=== PATIENT | male | born 1935 | race Caucasian/White ===

== ENCOUNTER 2021-08-28 05:00 | Outpatient (REF) | payer MEDICARE, SELFPAY | END 2021-08-28 05:01 | disposition home or self-care (01) | LOC: HO.MMNH2L 05:00 | PROVIDERS: Visit Provider Family Medicine | DX: Z13.89 Encounter for screening for other disorder (principal) ==

== ENCOUNTER 2021-09-03 05:00 | Outpatient (REF) | payer MEDICARE, SELFPAY | END 2021-09-03 05:01 | disposition home or self-care (01) | LOC: HO.MMNH2L 05:00 | PROVIDERS: Visit Provider Family Medicine | DX: Z13.89 Encounter for screening for other disorder (principal) ==

== ENCOUNTER 2022-01-21 06:48 | Outpatient (REF) | payer MEDICARE, SELFPAY ==
[2022-01-21 07:39] LABS: Hematocrit 35.9 % (42.0-52.0); Hemoglobin 11.7 g/dl (14.0-18.0); Mean Corpuscular HGB Conc 32.6 g/dl (31.0-36.0); Mean Corpuscular Hemoglobin 29.3 pg (27.0-33.0); Mean Platelet Volume 11.9 fL (9.4-12.4); Platelet Count 150 X10*3/uL (160-400); Red Blood Count 3.99 X10*6/uL (4.60-5.80); Red Cell Distribution Width 14.1 % (11.0-16.0); White Blood Count 4.2 X10*3/uL (4.8-10.8)
[2022-01-21 07:41] LABS: Anion Gap 14 (12-20); Blood Urea Nitrogen 14 mg/dL (9-16); Carbon Dioxide 25 mmol/L (22-29); Chloride 106 mmol/L (96-108); Estimated Glomerular Filt Rate > 60; Glucose Random 215 mg/dL (60-115); Potassium 4.1 mmol/L (3.3-5.1); Sodium 141 mmol/L (135-145)
== END 2022-01-21 06:49 | disposition home or self-care (01) ==
LOC: HO.MMNH2L 06:48
PROVIDERS: Visit Provider Family Medicine
DX: G92.8 Other toxic encephalopathy (principal)
CPT/HCPCS: 36415; 80048; 85027

== ENCOUNTER 2022-02-25 07:04 | Outpatient (REF) | payer MEDICARE, SELFPAY ==
[2022-02-25 07:36] LABS: Hematocrit 35.8 % (42.0-52.0); Hemoglobin 11.6 g/dl (14.0-18.0); Mean Corpuscular HGB Conc 32.4 g/dl (31.0-36.0); Mean Corpuscular Hemoglobin 29.2 pg (27.0-33.0); Mean Corpuscular Volume 90.2 fL (80.0-98.0); Mean Platelet Volume 11.1 fL (9.4-12.4); Platelet Count 178 X10*3/uL (160-400); Red Blood Count 3.97 X10*6/uL (4.60-5.80); Red Cell Distribution Width 13.6 % (11.0-16.0); White Blood Count 5.1 X10*3/uL (4.8-10.8)
[2022-02-25 08:29] LABS: Blood Urea Nitrogen 16 mg/dL (9-16); Calcium 8.7 mg/dL (8.4-10.2); Estimated Glomerular Filt Rate > 60
[2022-02-25 08:41] LABS: Anion Gap 12 (12-20); Carbon Dioxide 24 mmol/L (22-29); Chloride 107 mmol/L (96-108); Potassium 4.3 mmol/L (3.3-5.1); Sodium 139 mmol/L (135-145)
[2022-02-25 09:31] LABS: Glucose Random 360 mg/dL (60-115)
== END 2022-02-25 07:05 | disposition home or self-care (01) ==
LOC: HO.MMNH2L 07:04
PROVIDERS: Visit Provider Family Medicine
DX: G92.8 Other toxic encephalopathy (principal)
CPT/HCPCS: 36415; 80048; 85027

== ENCOUNTER 2022-02-27 14:07 | Emergency (ER) | payer MEDICARE, MEDICAID, SELFPAY ==
--- NOTE | ~2022-02-27 | XR_ITS ---
EXAMINATION: XR CHEST CLINICAL INFORMATION: Dizziness. COMPARISON: None TECHNIQUE: 2 views of the chest were obtained. FINDINGS: No significant abnormality is noted involving the heart, lungs, mediastinum, bony thorax or soft tissues. XR/XR chest 2V IMPRESSION: No acute cardiopulmonary process.
--- NOTE | ~2022-02-27 | CT_ITS ---
EXAMINATION: CT HEAD WITHOUT CONTRAST CLINICAL INFORMATION: Dizziness COMPARISON: None TECHNIQUE: Imaging was performed from the skull base to vertex without intravenous administration of contrast. This CT examination was performed using dose optimization techniques as appropriate, variously including the following: *Automated exposure control *Adjustment of mA and/or kV according to patient size (this includes techniques or standardized protocols for targeted exams where dose is matched to indication/reason for exam; i.e. extremities or head) *Use of iterative reconstruction technique Total exam dose length product: 938 mGy-cm FINDINGS: No intra or extra-axial fluid collection, hemorrhage, or mass. No ventriculomegaly. No midline shift or herniation. Basal cisterns are patent. Wagner-white matter differentiation is maintained. No territorial encephalomalacia. Proportional prominence of the ventricles and sulcal spaces is consistent with mild volume loss. Patchy periventricular and deep white matter hypoattenuation is consistent with mild small vessel ischemic changes. A few small low-density foci consistent with prior lacunar infarcts in the basal ganglia bilaterally. No calvarial fracture or soft tissue abnormality. The mastoid air cells and visualized portions of the paranasal sinuses are well aerated. CT/CT head/brain wo IV con IMPRESSION: No acute intracranial pathology.
[2022-02-27 14:22] VITALS: BP 154/74; BP 177/80; PULSE 107; PULSE 81; RESP 20; TEMP 36.6; O2SAT 95; O2SAT 99; BMI 27.2
--- NOTE | 2022-02-27 15:04 | ED_ITS ---
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 He had CVA, prostate issues, HTN, DM, melanoma, and asthma. [facility]iness and lightheaded. Uses a walker at baseline. Room was spinner. Blood sugar was checked and was elevated. HE denies chest pain fever chills no nausea vomiting no dysuria frequency. No numbness tingling or weakness. Related Data Allergies Allergy/AdvReac Type Severity Reaction Status Date / Time lisinopril Allergy Unknown Verified 02/27/22 15:27 pembrolizumab Allergy Unknown Verified 02/27/22 15:27 Penicillins Allergy Unknown Verified 02/27/22 15:27 pollen extracts Allergy Unknown Verified 02/27/22 15:27 Sulfa (Sulfonamide Allergy Unknown Verified 02/27/22 15:27 Antibiotics) Review of Systems Review of Systems: Review of systems: General: Patient denies any fever chills recent illness or falls Musculoskeletal: Denies back pain or body aches or other injuries HEENT: denies headache, runny nose, ear pain Respiratory: denies shortness of breath, cough Cardiovascular: no chest pain or palpitations : denies dysuria, frequency Abdomen: no nausea vomiting denies abdominal pain Extremities: no swelling, no pain Skin: no diaphoresis Yes all other systems are reviewed and are negative [facility] Social History Social History Advance Directives: Yes Advance Directives Information Provided: No Advance Directives on File: No Physical Exam ED Vital Signs: Vital Signs - 24 hr 02/27/22 14:22 02/27/22 15:35 Temperature 97.9 F 97.6 F Pulse Rate 81 89 Respiratory Rate 20 20 Blood Pressure 177/80 H 160/84 H Pulse Oximetry 95 99 Oxygen Delivery Method Room Air Room Air BMI result Body Mass Index 27.2 Neurological exam: CN II- XII tested. Patient is alert and oriented to person place and time. Patient has no dysphagia or dysarthia, denies good vision in all four vision truong no nystagmus on exam, good strength to upper and lower extremities with normal reflexes to brachioradialis, wrist, patella and achilles. Negative romberg, good finger to nose and heel to gardner. General: Well-appearing well-nourished in no signs of distress HEENT: Normocephalic atraumatic Neck: No signs of JVD, no masses no tenderness or lymphadenopathy Cardiovascular: Regular rate and rhythm Respiratory: Clear to auscultation bilaterally Abdomen: Soft nontender no masses Extremities: Normal pedal pulses no signs of edema Skin: Dry warm no rashes Back: No tenderness full ROM Medications Administered Generic Name Dose Route Start Last Admin Trade Name Freq PRN Reason Stop Dose Admin Sodium Chloride 1,000 mls @ 999 mls/hr 02/27/22 15:30 02/27/22 15:47 Ns IV 02/27/22 16:30 999 mls/hr .Q1H1M CHALINO Administration Medical Decision Making [facility] Narrative Medical decision making narrative: Patient here with dizziness both lightheaded and room spinning with elevated glucose. I will work up for DKA and check a urine and Xr. I will check labs acetone and give fluids. I willl also get a CT head. I will sign out pending CT and labs. Lab Data Result diagrams: 02/27/22 15:46 02/27/22 15:46 Discharge Plan Discharge Clinical Impression: Dizziness, Light-headedness, Vertiginous syndrome Patient Disposition: Still a Patient
--- NOTE | 2022-02-27 15:31 | ECG_ITS ---
Test Reason : DIZZINESS Blood Pressure : / mmHG Vent. Rate : 080 BPM Atrial Rate : 080 BPM P-R Int : 226 ms QRS Dur : 092 ms QT Int : 436 ms P-R-T Axes : 049 -39 028 degrees QTc Int : 502 ms Sinus rhythm with 1st degree A-V block with Premature atrial complexes Left axis deviation Prolonged QT Abnormal ECG No previous ECGs available Referred By: Eliu Carvajal Electronically Signed By:Adria Gordillo
[2022-02-27 15:35] VITALS: BP 160/84; PULSE 89; RESP 20; TEMP 36.4; O2SAT 99
[2022-02-27] MEDS: 0.9 % Sodium Chloride 1,000 ML 999 ML IV (15:47)
[2022-02-27 15:50] LABS: MANUAL DIFF FLAG NO
[2022-02-27 15:56] LABS: Basophils Percent Auto 0.5 % (0-2); Eosinophils Percent Auto 0.3 % (0-4); Hematocrit 39.6 % (42.0-52.0); Hemoglobin 13.4 g/dl (14.0-18.0); Imm Gran Abs Auto 0.01 X10*3/uL (0.00-0.03); Imm Gran Pct Auto 0.2 % (0.0-0.4); Lymphocytes Absolute Auto 0.7 X10*3/uL (1.2-4.9); Lymphocytes Percent Auto 11.7 % (20-40); Mean Corpuscular HGB Conc 33.8 g/dl (31.0-36.0); Mean Corpuscular Hemoglobin 28.8 pg (27.0-33.0); Mean Corpuscular Volume 85.2 fL (80.0-98.0); Mean Platelet Volume 10.5 fL (9.4-12.4); Monocytes Absolute Auto 0.6 X10*3/uL (0.1-1.2); Monocytes Percent Auto 9.6 % (2-11); Neutrophils Absolute Auto 4.5 x10*3/uL (2.0-8.3); Neutrophils Percent Auto 77.7 % (45-73); Platelet Count 221 X10*3/uL (160-400); Red Blood Count 4.65 X10*6/uL (4.60-5.80); Red Cell Distribution Width 13.5 % (11.0-16.0); White Blood Count 5.8 X10*3/uL (4.8-10.8)
[2022-02-27 16:10] LABS: COVID-19 Test Negative (Negative); IDNOW Serial# 16C4AD1C
[2022-02-27 16:13] LABS: Alanine Aminotransferase 22 U/L (0-40); Albumin Level 4.4 g/dL (3.5-5.0); Alkaline Phosphatase 140 U/L (39-117); Anion Gap 15 (12-20); Aspartate Amino Transferase 21 U/L (5-37); Bilirubin Direct 0.3 mg/dL (0.0-0.5); Bilirubin Total 0.8 mg/dL (0.0-1.0); Blood Urea Nitrogen 17 mg/dL (9-16); Calcium 10.2 mg/dL (8.4-10.2); Carbon Dioxide 24 mmol/L (22-29); Chloride 101 mmol/L (96-108); Creatinine Clr Calc Pharmacy 52.9; Estimated Glomerular Filt Rate > 60; Glucose Random 134 mg/dL (60-115); Lipase 14 U/L (8-78); Potassium 3.2 mmol/L (3.3-5.1); Sodium 137 mmol/L (135-145); Total Protein 7.3 g/dL (6.5-8.0)
--- NOTE | 2022-02-27 16:20 | PHA.MEDREC ---
Pharmacy Consult ? Medication Reconciliation Pharmacy has completed the medication reconciliation.
[2022-02-27 16:49] LABS: Acetone, serum QL Negative (Negative)
[2022-02-27 16:56] LABS: Appearance Urine Clear; Color Urine Yellow; Glucose Urine UA 100 mg/dL (Negative); Leukocyte Esterase Urine Moderate (2+) (Negative); Nitrite Urine Positive (Negative); PH >= 9.0 (5.0-9.0); Specific Gravity - Urine 1.015 (1.005-1.025); UMIC TRIGGER UACC YES; Urine Blood Negative (Negative); Urine Ketones Negative (Negative); Urine Protein 30 (1+) mg/dL (Neg-Trace)
[2022-02-27 17:06] VITALS: BP 149/82; PULSE 91; RESP 18; TEMP 36.7; O2SAT 98
[2022-02-27 17:26] LABS: Bacteria Urine 4+ (None Seen); Hyaline Casts Urine 0-2 /LPF (0-2); RBC Urine 0-2 /HPF (0-2); Squamous Epithelial Cell Urine 0-2 /HPF (0-2); UACC Culture Trigger YES
[2022-02-27] MEDS: Potassium Chloride Packet 20 MEQ PACKET 40 MEQ PO (17:52)
[2022-02-27] MEDS: cefTRIAXone sodium 1 GM in 0.9 % Sodium Chloride 50 ML IV (17:52)
--- NOTE | 2022-02-27 19:12 | PC.NURSE ---
Ambulance booked for pt. On their way to transport back to [facility]
--- NOTE | 2022-02-27 19:17 | PC.NURSE ---
Called nurse to nurse report to RIYA Em at [facility]
--- NOTE | 2022-02-27 20:40 | MHC.CM.ED ---
CM was asked to meet with this patient by Eli BRUNNER, as patient does not want to return to [facility]. When CM entered patient's room, he was on the telephone with his nurse from [facility]. Pt is willing to return to [facility]. Will speak with Director about his concerns. He did not share them with CM. Pt has been living at [facility] for about 6 months. CM did explain to patient that if he is unhappy with living at [facility], he should speak with the social media director at the facility to transfer to another facility. CM services not necessary at this time.
== END 2022-02-27 19:52 | disposition skilled nursing facility (03) ==
PROVIDERS: Emergency Provider Student in an Organized Health Care Education/Training Program; PCP Family Medicine
DX: R42 Dizziness and giddiness (principal); H81.90 Unspecified disorder of vestibular function, unspecified ear; N39.0 Urinary tract infection, site not specified; B96.20 Unspecified Escherichia coli [E. coli] as the cause of diseases classified elsewhere; Z20.822 Contact with and (suspected) exposure to COVID-19; E11.9 Type 2 diabetes mellitus without complications; I10 Essential (primary) hypertension; Z86.73 Personal history of transient ischemic attack (TIA), and cerebral infarction without residual deficits
CPT/HCPCS: 36415; 70450; 71046; 80048; 80076; 81001; 81003; 82009; 83690; 85025; 87086; 87088; 87186; 87635; 93005; 96361; 96374; 99284; J0696

== ENCOUNTER 2022-03-01 08:19 | Emergency (ER) | payer MEDICARE, MEDICAID, SELFPAY ==
--- NOTE | ~2022-03-01 | XR_ITS ---
EXAMINATION: XR CHEST CLINICAL INFORMATION: Cough. COMPARISON: 02/27/2022 chest radiographs. TECHNIQUE: Frontal view of the chest was obtained. FINDINGS: No significant abnormality is noted involving the heart, lungs, mediastinum, bony thorax or soft tissues. Surgical clips are again seen overlying the right axilla. XR/XR chest 1V IMPRESSION: No acute cardiopulmonary process.
--- NOTE | 2022-03-01 08:26 | ECG_ITS ---
Test Reason : abnormal labs/ high blood sugar Blood Pressure : / mmHG Vent. Rate : 081 BPM Atrial Rate : 081 BPM P-R Int : 224 ms QRS Dur : 094 ms QT Int : 378 ms P-R-T Axes : 017 -35 034 degrees QTc Int : 439 ms Sinus rhythm with marked sinus arrhythmia with 1st degree A-V block Left axis deviation Abnormal ECG When compared with ECG of 27-FEB-2022 16:59, Premature atrial complexes are no longer Present QT has shortened Referred By: Chaparrita Tierney Electronically Signed By:Adria Gordillo
[2022-03-01 08:29] VITALS: BP 171/96; PULSE 87; RESP 16; TEMP 36.4; O2SAT 97
[2022-03-01 09:30] LABS: MANUAL DIFF FLAG NO
[2022-03-01 09:34] LABS: Basophils Percent Auto 0.3 % (0-2); Eosinophils Absolute Auto 0.1 X10*3/uL (0.0-0.4); Hematocrit 40.8 % (42.0-52.0); Hemoglobin 13.6 g/dl (14.0-18.0); Imm Gran Abs Auto 0.01 X10*3/uL (0.00-0.03); Imm Gran Pct Auto 0.2 % (0.0-0.4); Lymphocytes Absolute Auto 0.8 X10*3/uL (1.2-4.9); Lymphocytes Percent Auto 13.8 % (20-40); Mean Corpuscular HGB Conc 33.3 g/dl (31.0-36.0); Mean Corpuscular Hemoglobin 29.2 pg (27.0-33.0); Mean Corpuscular Volume 87.7 fL (80.0-98.0); Monocytes Absolute Auto 0.5 X10*3/uL (0.1-1.2); Monocytes Percent Auto 7.9 % (2-11); Neutrophils Absolute Auto 4.6 x10*3/uL (2.0-8.3); Neutrophils Percent Auto 75.8 % (45-73); Platelet Count 208 X10*3/uL (160-400); Red Blood Count 4.65 X10*6/uL (4.60-5.80); Red Cell Distribution Width 13.9 % (11.0-16.0); White Blood Count 6.1 X10*3/uL (4.8-10.8)
[2022-03-01 09:38] VITALS: BP 179/99; O2SAT 97; BMI 26.6
[2022-03-01 09:43] LABS: Acetone, serum QL Negative (Negative)
--- NOTE | 2022-03-01 09:50 | ED_ITS ---
HPI - General Adult General Chief complaint: General Medical Stated complaint: hyperglycemia Time Seen by Provider: 03/01/22 08:26 Source: patient Mode of arrival: EMS History of Present Illness HPI narrative: 86-year-old male who arrives via EMS and is noted to have underlying hypertension, diabetes with complaint of palpitations and high sugar levels. Patient otherwise denies any fever, chills, shortness of breath, chest pain and denies any GI or symptoms. Patient states he has plans with his frame runner to reinsert the insulin pump. And states that he was not discharged with any potassium supplements when he was evaluated here in the emergency room on Friday. Patient states he took his blood pressure medication prior to leaving the facility. He is requesting a Cardiology referral. Related Data Home Medications Medication Instructions Recorded Confirmed albuterol sulfate 90 mcg/actuation 2 puff inhalation Q6H PRN 02/27/22 02/27/22 aerosol inhaler (Ventolin HFA) Shortness Of Breath Or Wheezing aspirin 81 mg tablet,delayed 81 mg PO DAILY 02/27/22 02/27/22 release atorvastatin 40 mg tablet 40 mg PO BEDTIME 02/27/22 02/27/22 chlorpheniramine maleate 4 mg 4 mg PO BID 02/27/22 02/27/22 tablet diltiazem HCl 240 mg 1 cap PO DAILY 02/27/22 02/27/22 capsule,extended release 24 hr diphenhydramine HCl 25 mg tablet 25 mg PO BEDTIME PRN Allergy 02/27/22 02/27/22 (Benadryl Allergy) Symptoms docusate sodium 100 mg capsule 100 mg PO BID 02/27/22 02/27/22 (Colace) fluticasone 250 mcg-salmeterol 50 1 inh inhalation BID 02/27/22 02/27/22 mcg/dose blistr powdr for inhalation (Advair Diskus) fluticasone propionate 50 1 spray intranasal DAILY 02/27/22 02/27/22 mcg/actuation nasal spray,suspension insulin aspart U-100 100 unit/mL 1 sliding scale dose subcut QIDACHS 02/27/22 02/27/22 subcutaneous solution (Novolog U-100 Insulin aspart) insulin glargine 100 unit/mL (3 15 unit subcut BID 02/27/22 02/27/22 mL) subcutaneous pen (Basaglar KwikPen U-100 Insulin) lidocaine 4 % topical patch 1 patch topical DAILY PRN Pain 02/27/22 02/27/22 (Scale Score 1-3) mometasone 50 mcg/actuation nasal 1 spray intranasal DAILY 02/27/22 02/27/22 spray omeprazole 20 mg capsule,delayed 20 mg PO DAILY 02/27/22 02/27/22 release Previous Rx's Medication Instructions Recorded cefuroxime axetil 500 mg tablet 500 mg PO Q12H 7 days #14 tabs 02/27/22 Allergies Allergy/AdvReac Type Severity Reaction Status Date / Time lisinopril Allergy Unknown Verified 02/27/22 15:27 pembrolizumab Allergy Unknown Verified 02/27/22 15:27 Penicillins Allergy Unknown Verified 02/27/22 15:27 pollen extracts Allergy Unknown Verified 02/27/22 15:27 Sulfa (Sulfonamide Allergy Unknown Verified 02/27/22 15:27 Antibiotics) Review of Systems Review of Systems: Pertinent positives and negatives as stated in HPI 10 point review of systems otherwise negative. [facility] Past Medical History Source: nursing notes reviewed Social History Social History Advance Directives: Yes Advance Directives Information Provided: Yes Advance Directives on File: No Physical Exam ED Vital Signs: Vital Signs - 24 hr 03/01/22 08:29 Temperature 97.6 F Pulse Rate 87 Respiratory Rate 16 Blood Pressure 171/96 H Pulse Oximetry 97 Oxygen Delivery Method Room Air BMI result Body Mass Index 26.6 VITAL SIGNS: Reviewed. GENERAL: Well developed, well nourished, in no acute distress. HEAD: Normocephalic/atraumatic EYES: PERRLA, EOMI EARS: Ext canals without abnormality OROPHARYNX: no oral lesions noted, posterior pharynx clear LUNGS: Normal breath sounds. No adventitious sounds or accessory muscle use. SpO2<97> CARDIOVASCULAR: Regular rate and rhythm without noted murmurs, no JVD or lower extremity edema. ABDOMEN: Soft, non-tender, non-distended with bowel sounds. MUSCULOSKELETAL: No tenderness, deformities, or effusions noted on gross inspection. EXTREMITIES: No cyanosis, clubbing or edema. SKIN: Inspection of the skin reveals no rashes NEUROLOGIC: Alert and oriented x 3. Strength and sensation to light touch were grossly intact x 4. Course Course Course Narrative: 86-year-old male with history and clinical presentation after review of all investigations there is no demonstration of infection, anemia, electrolyte abnormalities. On review of all EKGs it is unchanged patient appears to have stable chronic first-degree AV block. Most of his physicians are within the [facility] system, he also has consultants and [place] as well as [place]. I spoke extensively with his healthcare provider at the facility who stated that the patient is reluctant to communicate with her as well as the staff regarding his other medical conditions that he makes arrangements for. He is otherwise hemodynamically stable and will be discharged back to the facility via shuttle. Reevaluation(s) Reevaluation #1: KANNAN Guerra, has made attempts for psych eval which patient refuses, will not s hare medical treatment, facility is struggling with obtaining consult visits and medical plans due to the independent status of the patient. I recommended that they communicate with the gearcase assembler, social research assistant and determine qualifications for penitentiary given the level of independence that is being exhibited by the patient for making medical arrangements and appointments. These plans and consultations leave avoid for the continued care and continuity of care for this patient. KANNAN Guerra agrees and will pursue that avenue and in the meantime we will continue to establish that there are no acute medical issues with the patient and he will be discharged with a referral to follow-up with cardiology although patient does receive all of his outpatient care through the [facility] system. Time: 09:56 Medical Decision Making Lab Data Result diagrams: 03/01/22 09:25 03/01/22 09:25 Labs: Lab Results 03/01/22 03/01/22 Range/Units 09:25 09:25 WBC 6.1 (4.8-10.8) X10*3/uL RBC 4.65 (4.60-5.80) X10*6/uL Hgb 13.6 L (14.0-18.0) g/dl Hct 40.8 L (42.0-52.0) % MCV 87.7 (80.0-98.0) fL MCH 29.2 (27.0-33.0) pg MCHC 33.3 (31.0-36.0) g/dl RDW 13.9 (11.0-16.0) % Plt Count 208 (160-400) X10*3/uL MPV 11.0 (9.4-12.4) fL Immature Gran % (Auto) 0.2 (0.0-0.4) % Neut % (Auto) 75.8 H (45-73) % Lymph % (Auto) 13.8 L (20-40) % [place] % (Auto) 7.9 (2-11) % Eos % (Auto) 2.0 (0-4) % Baso % (Auto) 0.3 (0-2) % Lymph # (Auto) 0.8 L (1.2-4.9) X10*3/uL [place] # (Auto) 0.5 (0.1-1.2) X10*3/uL Eos # (Auto) 0.1 (0.0-0.4) X10*3/uL Baso # (Auto) 0.0 (0.0-0.2) X10*3/uL Abs Immat Gran (auto) 0.01 (0.00-0.03) X10*3/uL Absolute Neuts (auto) 4.6 (2.0-8.3) x10*3/uL Absolute Nucleated RBC 0.000 (0.0-0.012) X10*3/uL Nucleated RBC % (auto) 0.0 (0.0-0.2) /100WBC Sodium 135 (135-145) mmol/L Potassium 4.0 D (3.3-5.1) mmol/L Chloride 102 (96-108) mmol/L Carbon Dioxide 24 (22-29) mmol/L Anion Gap 13 (12-20) BUN 15 (9-16) mg/dL Creatinine 1.07 (0.5-1.4) mg/dL Estim Creat Clear Calc 49.5 Estimated GFR > 60 Random Glucose 200 H (60-115) mg/dL Calcium 9.7 (8.4-10.2) mg/dL Total Bilirubin 0.8 (0.0-1.0) mg/dL AST 34 (5-37) U/L ALT 24 (0-40) U/L Alkaline Phosphatase 140 H (39-117) U/L Total Protein 7.2 (6.5-8.0) g/dL Albumin 4.1 (3.5-5.0) g/dL Acetone, Qual Negative (Negative) Discharge Plan Discharge Clinical Impression: Palpitation, Hyperglycemia Patient Disposition: Home, Self-Care Instructions: Heart Palpitations (ED), Diabetic Hyperglycemia (ED) Additional Instructions: 1. Resume all home medication as prescribed. 2. I highly recommend that you discuss all plans and changes in your medication with your current providers at the facility so that you can received improved care. 3. You have been provided with a Cardiology referral, however this is through the [facility] system and you may need to change this to the [facility] system. 4. Recommend that you follow-up with your primary care provider in the next 1-2 days for re-evaluation. Return to the ER for worsening symptoms. Prescriptions: No Action atorvastatin 40 mg Tablet 40 mg PO BEDTIME diltiazem HCl 240 mg capsule,extended release 24hr 1 cap PO DAILY aspirin 81 mg Tablet,Delayed Release (Dr/Ec) 81 mg PO DAILY insulin aspart U-100 [Novolog U-100 Insulin aspart] 100 unit/mL Solution 1 sliding scale dose SUBCUT QIDACHS Protocol: Insulin Correction Scale Less than or equal to 110 ---- Give (units): 0 111 to 150 Give (units): 0 151 to 200 Give (units): 2 201 to 250 Give (units): 4 251 to 300 Give (units): 6 301 to 350 Give (units): 8 Greater than 350 Give (units): 10 Call MD if Blood Glucose > : 350 diphenhydramine HCl [Benadryl Allergy] 25 mg Tablet 25 mg PO BEDTIME PRN (Reason: Allergy Symptoms) mometasone [Nasonex] 50 mcg/actuation [place],Non-Aerosol 1 spray INTRANASAL DAILY Rx Instructions: administer into each nostril fluticasone propionate [Flonase] 50 mcg/actuation [place],Suspension 1 spray INTRANASAL DAILY Rx Instructions: administer into each nostril fluticasone propion-salmeterol [Advair Diskus] 250-50 mcg/dose Blister With Device 1 inh INHALATION BID chlorpheniramine maleate [Chlorpheniramine Allergy] 4 mg Tablet 4 mg PO BID lidocaine 4 % Adhesive Patch,Medicated 1 patch TOPICAL DAILY PRN (Reason: Pain (Scale Score 1-3)) docusate sodium [Colace] 100 mg Capsule 100 mg PO BID omeprazole [Prilosec] 20 mg Capsule,Delayed Release(Dr/Ec) 20 mg PO DAILY albuterol sulfate [Ventolin HFA] 90 mcg/actuation Hfa Aerosol Inhaler 2 puff INHALATION Q6H PRN (Reason: Shortness Of Breath Or Wheezing) insulin glargine [Basaglar KwikPen U-100 Insulin] 100 unit/mL (3 mL) Insulin Pen 15 unit SUBCUT BID cefuroxime axetil 500 mg tablet 500 mg PO Q12H 7 Days Qty: 14 0RF Referrals: Milan Joy MD [Primary Care Provider] - Adria Gordillo MD [Physician] -
[2022-03-01 09:58] LABS: Alanine Aminotransferase 24 U/L (0-40); Albumin Level 4.1 g/dL (3.5-5.0); Alkaline Phosphatase 140 U/L (39-117); Anion Gap 13 (12-20); Aspartate Amino Transferase 34 U/L (5-37); Bilirubin Total 0.8 mg/dL (0.0-1.0); Blood Urea Nitrogen 15 mg/dL (9-16); Calcium 9.7 mg/dL (8.4-10.2); Carbon Dioxide 24 mmol/L (22-29); Chloride 102 mmol/L (96-108); Creatinine Clr Calc Pharmacy 49.5; Estimated Glomerular Filt Rate > 60; Glucose Random 200 mg/dL (60-115); Sodium 135 mmol/L (135-145); Total Protein 7.2 g/dL (6.5-8.0)
[2022-03-01] MEDS: amLODIPine Besylate 10 MG TABLET PO (10:47)
== END 2022-03-01 12:23 | disposition home or self-care (01) ==
PROVIDERS: Emergency Provider Student in an Organized Health Care Education/Training Program; PCP Family Medicine
DX: E11.65 Type 2 diabetes mellitus with hyperglycemia (principal); R00.2 Palpitations; I10 Essential (primary) hypertension; Z79.899 Other long term (current) drug therapy
CPT/HCPCS: 36415; 71045; 80053; 82009; 85025; 93005; 99284

== ENCOUNTER 2022-03-11 07:55 | Outpatient (REF) | payer SELFPAY ==
[2022-03-11 07:02] LABS: MANUAL DIFF FLAG NO
[2022-03-11 07:45] LABS: Basophils Percent Auto 0.6 % (0-2); Eosinophils Absolute Auto 0.2 X10*3/uL (0.0-0.4); Eosinophils Percent Auto 3.2 % (0-4); Hematocrit 35.4 % (42.0-52.0); Hemoglobin 11.4 g/dl (14.0-18.0); Imm Gran Abs Auto 0.01 X10*3/uL (0.00-0.03); Imm Gran Pct Auto 0.2 % (0.0-0.4); Lymphocytes Absolute Auto 1.4 X10*3/uL (1.2-4.9); Lymphocytes Percent Auto 22.3 % (20-40); Mean Corpuscular HGB Conc 32.2 g/dl (31.0-36.0); Mean Corpuscular Hemoglobin 28.6 pg (27.0-33.0); Mean Corpuscular Volume 88.7 fL (80.0-98.0); Mean Platelet Volume 11.2 fL (9.4-12.4); Monocytes Absolute Auto 0.5 X10*3/uL (0.1-1.2); Monocytes Percent Auto 7.6 % (2-11); Neutrophils Absolute Auto 4.2 x10*3/uL (2.0-8.3); Neutrophils Percent Auto 66.1 % (45-73); Platelet Count 176 X10*3/uL (160-400); Red Blood Count 3.99 X10*6/uL (4.60-5.80); Red Cell Distribution Width 13.6 % (11.0-16.0); White Blood Count 6.3 X10*3/uL (4.8-10.8)
[2022-03-11 08:17] LABS: Anion Gap 9 (12-20); Blood Urea Nitrogen 13 mg/dL (9-16); Calcium 8.5 mg/dL (8.4-10.2); Carbon Dioxide 23 mmol/L (22-29); Chloride 107 mmol/L (96-108); Estimated Glomerular Filt Rate > 60; Glucose Random 270 mg/dL (60-115); Sodium 135 mmol/L (135-145)
== END 2022-03-11 07:56 | disposition home or self-care (01) ==
LOC: HO.MMNH2L 07:55
PROVIDERS: Visit Provider Family Medicine
DX: G92.8 Other toxic encephalopathy (principal)
CPT/HCPCS: 36415; 80048; 85025

== ENCOUNTER 2022-04-29 07:02 | Outpatient (REF) | payer MEDICARE, MEDICAID, SELFPAY ==
[2022-04-29 06:53] LABS: MANUAL DIFF FLAG NO
[2022-04-29 07:41] LABS: Basophils Percent Auto 0.7 % (0-2); Eosinophils Absolute Auto 0.3 X10*3/uL (0.0-0.4); Eosinophils Percent Auto 6.5 % (0-4); Hematocrit 36.5 % (42.0-52.0); Hemoglobin 11.9 g/dl (14.0-18.0); Imm Gran Abs Auto 0.01 X10*3/uL (0.00-0.03); Imm Gran Pct Auto 0.2 % (0.0-0.4); Lymphocytes Absolute Auto 1.4 X10*3/uL (1.2-4.9); Lymphocytes Percent Auto 33.1 % (20-40); Mean Corpuscular HGB Conc 32.6 g/dl (31.0-36.0); Mean Corpuscular Hemoglobin 29.6 pg (27.0-33.0); Mean Corpuscular Volume 90.8 fL (80.0-98.0); Mean Platelet Volume 11.6 fL (9.4-12.4); Monocytes Absolute Auto 0.4 X10*3/uL (0.1-1.2); Monocytes Percent Auto 8.3 % (2-11); Neutrophils Absolute Auto 2.2 x10*3/uL (2.0-8.3); Neutrophils Percent Auto 51.2 % (45-73); Platelet Count 168 X10*3/uL (160-400); Red Blood Count 4.02 X10*6/uL (4.60-5.80); Red Cell Distribution Width 14.7 % (11.0-16.0); White Blood Count 4.3 X10*3/uL (4.8-10.8)
[2022-04-29 08:15] LABS: Anion Gap 11 (12-20); Blood Urea Nitrogen 13 mg/dL (9-16); Calcium 8.9 mg/dL (8.4-10.2); Carbon Dioxide 26 mmol/L (22-29); Chloride 108 mmol/L (96-108); Estimated Glomerular Filt Rate > 60; Glucose Random 220 mg/dL (60-115); Potassium 4.4 mmol/L (3.3-5.1); Sodium 141 mmol/L (135-145)
== END 2022-04-29 07:03 | disposition home or self-care (01) ==
LOC: HO.MMNH3L 07:02
PROVIDERS: Visit Provider Family Medicine
DX: G92.8 Other toxic encephalopathy (principal)
CPT/HCPCS: 36415; 80048; 85025

== ENCOUNTER 2022-05-20 06:50 | Outpatient (REF) | payer MEDICARE, MEDICAID, SELFPAY ==
[2022-05-20 06:41] LABS: MANUAL DIFF FLAG NO
[2022-05-20 06:57] LABS: Basophils Percent Auto 0.9 % (0-2); Eosinophils Absolute Auto 0.2 X10*3/uL (0.0-0.4); Eosinophils Percent Auto 5.2 % (0-4); Hematocrit 35.7 % (42.0-52.0); Hemoglobin 11.7 g/dl (14.0-18.0); Imm Gran Abs Auto 0.02 X10*3/uL (0.00-0.03); Imm Gran Pct Auto 0.4 % (0.0-0.4); Lymphocytes Absolute Auto 1.6 X10*3/uL (1.2-4.9); Lymphocytes Percent Auto 34.8 % (20-40); Mean Corpuscular HGB Conc 32.8 g/dl (31.0-36.0); Mean Corpuscular Volume 91.5 fL (80.0-98.0); Mean Platelet Volume 11.6 fL (9.4-12.4); Monocytes Absolute Auto 0.4 X10*3/uL (0.1-1.2); Monocytes Percent Auto 9.5 % (2-11); Neutrophils Absolute Auto 2.3 x10*3/uL (2.0-8.3); Neutrophils Percent Auto 49.2 % (45-73); Platelet Count 144 X10*3/uL (160-400); Red Cell Distribution Width 14.6 % (11.0-16.0); White Blood Count 4.6 X10*3/uL (4.8-10.8)
[2022-05-20 07:35] LABS: Anion Gap 11 (12-20); Blood Urea Nitrogen 15 mg/dL (9-16); Calcium 8.8 mg/dL (8.4-10.2); Carbon Dioxide 25 mmol/L (22-29); Chloride 108 mmol/L (96-108); Estimated Glomerular Filt Rate > 60; Glucose Random 165 mg/dL (60-115); Potassium 3.8 mmol/L (3.3-5.1); Sodium 140 mmol/L (135-145)
== END 2022-05-20 06:51 | disposition home or self-care (01) ==
LOC: HO.MMNH3L 06:50
PROVIDERS: Visit Provider Family Medicine
DX: I48.0 Paroxysmal atrial fibrillation (principal); I10 Essential (primary) hypertension; E10.10 Type 1 diabetes mellitus with ketoacidosis without coma
CPT/HCPCS: 36415; 80048; 85025

== ENCOUNTER 2022-07-01 06:23 | Outpatient (REF) | payer OTHER, SELFPAY ==
[2022-07-01 06:23] LABS: MANUAL DIFF FLAG NO
[2022-07-01 06:49] LABS: Basophils Percent Auto 0.8 % (0-2); Eosinophils Absolute Auto 0.3 X10*3/uL (0.0-0.4); Eosinophils Percent Auto 4.8 % (0-4); Hematocrit 38.9 % (42.0-52.0); Hemoglobin 12.7 g/dl (14.0-18.0); Imm Gran Abs Auto 0.02 X10*3/uL (0.00-0.03); Imm Gran Pct Auto 0.4 % (0.0-0.4); Lymphocytes Absolute Auto 1.4 X10*3/uL (1.2-4.9); Lymphocytes Percent Auto 26.3 % (20-40); Mean Corpuscular HGB Conc 32.6 g/dl (31.0-36.0); Mean Corpuscular Hemoglobin 29.8 pg (27.0-33.0); Mean Corpuscular Volume 91.3 fL (80.0-98.0); Mean Platelet Volume 11.7 fL (9.4-12.4); Monocytes Absolute Auto 0.5 X10*3/uL (0.1-1.2); Monocytes Percent Auto 9.6 % (2-11); Neutrophils Percent Auto 58.1 % (45-73); Platelet Count 154 X10*3/uL (160-400); Red Blood Count 4.26 X10*6/uL (4.60-5.80); Red Cell Distribution Width 13.5 % (11.0-16.0); White Blood Count 5.2 X10*3/uL (4.8-10.8)
[2022-07-01 07:02] LABS: Anion Gap 10 (12-20); Blood Urea Nitrogen 18 mg/dL (9-16); Calcium 9.2 mg/dL (8.4-10.2); Carbon Dioxide 29 mmol/L (22-29); Chloride 105 mmol/L (96-108); Estimated Glomerular Filt Rate > 60; Glucose Random 261 mg/dL (60-115); Potassium 4.5 mmol/L (3.3-5.1); Sodium 139 mmol/L (135-145)
== END 2022-07-01 06:24 | disposition home or self-care (01) ==
LOC: HO.MMNH3L 06:23
PROVIDERS: Visit Provider Family Medicine
DX: I48.0 Paroxysmal atrial fibrillation (principal); E10.10 Type 1 diabetes mellitus with ketoacidosis without coma; I10 Essential (primary) hypertension
CPT/HCPCS: 36415; 80048; 85025

== ENCOUNTER 2022-08-01 05:16 | Outpatient (REF) | payer OTHER, SELFPAY ==
[2022-08-01 05:20] LABS: MANUAL DIFF FLAG NO
[2022-08-01 05:33] LABS: Basophils Percent Auto 0.7 % (0-2); Eosinophils Absolute Auto 0.2 X10*3/uL (0.0-0.4); Eosinophils Percent Auto 4.2 % (0-4); Hematocrit 36.3 % (42.0-52.0); Hemoglobin 11.9 g/dl (14.0-18.0); Imm Gran Abs Auto 0.01 X10*3/uL (0.00-0.03); Imm Gran Pct Auto 0.2 % (0.0-0.4); Lymphocytes Absolute Auto 1.7 X10*3/uL (1.2-4.9); Lymphocytes Percent Auto 29.3 % (20-40); Mean Corpuscular HGB Conc 32.8 g/dl (31.0-36.0); Mean Corpuscular Volume 88.5 fL (80.0-98.0); Mean Platelet Volume 10.4 fL (9.4-12.4); Monocytes Absolute Auto 0.4 X10*3/uL (0.1-1.2); Neutrophils Absolute Auto 3.4 x10*3/uL (2.0-8.3); Neutrophils Percent Auto 58.6 % (45-73); Platelet Count 215 X10*3/uL (160-400); Red Cell Distribution Width 13.4 % (11.0-16.0); White Blood Count 5.7 X10*3/uL (4.8-10.8)
[2022-08-01 05:52] LABS: Alanine Aminotransferase 18 U/L (0-40); Albumin Level 3.2 g/dL (3.5-5.0); Alkaline Phosphatase 111 U/L (39-117); Anion Gap 12 (12-20); Aspartate Amino Transferase 22 U/L (5-37); Bilirubin Total 0.6 mg/dL (0.0-1.0); Blood Urea Nitrogen 16 mg/dL (9-16); Calcium 8.8 mg/dL (8.4-10.2); Carbon Dioxide 24 mmol/L (22-29); Chloride 109 mmol/L (96-108); Estimated Glomerular Filt Rate > 60; Glucose Random 115 mg/dL (60-115); Potassium 4.2 mmol/L (3.3-5.1); Rheumatoid Factor 27.2 IU/mL (<15.0); Sodium 141 mmol/L (135-145); Total Protein 5.8 g/dL (6.5-8.0)
[2022-08-01 06:06] LABS: Free T4 (Free Thyroxine) 0.84 ng/dL (0.71-1.85)
[2022-08-01 08:34] LABS: Estimated Average Glucose 229 mg/dL; Hemoglobin A1c % 9.6 %
[2022-08-02 12:24] LABS: Prolactin 16.3 ng/mL (2.0-18.0); Triiodothyronine T3 Free 2.9 pg/mL (2.3-4.2)
== END 2022-08-01 05:17 | disposition home or self-care (01) ==
LOC: HO.MMNH3L 05:16
PROVIDERS: Visit Provider Family Medicine
DX: E10.10 Type 1 diabetes mellitus with ketoacidosis without coma (principal); I10 Essential (primary) hypertension; N40.1 Benign prostatic hyperplasia with lower urinary tract symptoms
CPT/HCPCS: 36415; 80053; 83002; 83036; 84146; 84439; 84481; 85025; 86431

== ENCOUNTER 2022-09-02 06:07 | Outpatient (REF) | payer OTHER, MEDICAID, SELFPAY ==
[2022-09-02 06:06] LABS: MANUAL DIFF FLAG NO
[2022-09-02 06:41] LABS: Anion Gap 9 (12-20); Blood Urea Nitrogen 14 mg/dL (9-16); Calcium 9.1 mg/dL (8.4-10.2); Carbon Dioxide 28 mmol/L (22-29); Chloride 107 mmol/L (96-108); Estimated Glomerular Filt Rate > 60; Glucose Random 204 mg/dL (60-115); Potassium 4.2 mmol/L (3.3-5.1); Sodium 140 mmol/L (135-145)
[2022-09-02 07:06] LABS: Basophils Percent Auto 0.6 % (0-2); Eosinophils Absolute Auto 0.2 X10*3/uL (0.0-0.4); Hematocrit 38.3 % (42.0-52.0); Hemoglobin 12.4 g/dl (14.0-18.0); Imm Gran Abs Auto 0.01 X10*3/uL (0.00-0.03); Imm Gran Pct Auto 0.2 % (0.0-0.4); Lymphocytes Absolute Auto 1.5 X10*3/uL (1.2-4.9); Lymphocytes Percent Auto 27.5 % (20-40); Mean Corpuscular HGB Conc 32.4 g/dl (31.0-36.0); Mean Corpuscular Hemoglobin 29.5 pg (27.0-33.0); Mean Corpuscular Volume 91.2 fL (80.0-98.0); Mean Platelet Volume 11.6 fL (9.4-12.4); Monocytes Absolute Auto 0.5 X10*3/uL (0.1-1.2); Monocytes Percent Auto 8.6 % (2-11); Neutrophils Absolute Auto 3.2 x10*3/uL (2.0-8.3); Neutrophils Percent Auto 59.1 % (45-73); Platelet Count 178 X10*3/uL (160-400); Red Cell Distribution Width 14.2 % (11.0-16.0); White Blood Count 5.5 X10*3/uL (4.8-10.8)
== END 2022-09-02 06:08 | disposition home or self-care (01) ==
LOC: HO.MMNH3L 06:07
PROVIDERS: Visit Provider Family Medicine
DX: I48.0 Paroxysmal atrial fibrillation (principal); E10.10 Type 1 diabetes mellitus with ketoacidosis without coma; I10 Essential (primary) hypertension
CPT/HCPCS: 36415; 80048; 85025